=== PATIENT | female | born 1985 | race Caucasian/White ===

== ENCOUNTER → 2018-12-17 | Outpatient (CLI) | payer OTHER ==
[~2018-12-17] MED LIST: DOXYCYCLINE100 M3 PO; IBU800 MG PO
== END | disposition home or self-care (01) ==
LOC: US 12-03 10:30
DX: N63.20 Unspecified lump in the left breast, unspecified quadrant (principal)

== ENCOUNTER 2018-12-24 20:24 | Emergency (ER) | payer OTHER ==
[~2018-12-24] VITALS: Ht 157.4 cm; Wt 86.2 kg
[2018-12-24] MEDS ORDERED: IBU800 MG PO (20:46)
[2018-12-24] MEDS ORDERED: DOXYCYCLINE100 M3 PO (20:46)
== END 2018-12-24 20:47 | disposition home or self-care (01) ==
LOC: ED 20:24
DX: N61.1 Abscess of the breast and nipple (principal); F17.200 Nicotine dependence, unspecified, uncomplicated

== ENCOUNTER 2020-11-12 16:28 | Emergency (ER) | payer OTHER ==
[~2020-11-12] VITALS: Wt 81.6 kg
[2020-11-12] MEDS ORDERED: CORTISPORIN SUS10 ML OT (17:29)
[2020-11-12] MEDS ORDERED: IBUPROFEN600 MG PO (17:29)
[2020-11-12] MEDS ORDERED: AMOXICILLIN500 M2 PO (17:29)
== END 2020-11-12 17:42 | disposition home or self-care (01) ==
LOC: ED 16:28
DX: H66.91 Otitis media, unspecified, right ear (principal); H60.91 Unspecified otitis externa, right ear; R42 Dizziness and giddiness; F17.200 Nicotine dependence, unspecified, uncomplicated; Z79.2 Long term (current) use of antibiotics; Z79.899 Other long term (current) drug therapy

== ENCOUNTER 2021-11-03 21:52 | Emergency (ER) | payer OTHER ==
[~2021-11-03] VITALS: Ht 162.5 cm; Wt 86.2 kg
[~2021-11-03 21:52] MED LIST changes: +AMOXICILLIN500 M2 PO; +CORTISPORIN SUS10 ML OT; +IBUPROFEN600 MG PO
[2021-11-03] MEDS ORDERED: CEPHALEXIN500 M1 PO (23:49)
[2021-11-03] MEDS ORDERED: CYCLOBENZAPRINE10 MG PO (23:49)
== END 2021-11-04 00:24 | disposition home or self-care (01) ==
LOC: ED 21:52
DX: S01.81XA Laceration without foreign body of other part of head, initial encounter (principal); F17.200 Nicotine dependence, unspecified, uncomplicated; M54.2 Cervicalgia; V29.59XA Motorcycle passenger injured in collision with other motor vehicles in traffic accident, initial encounter; Y93.89 Activity, other specified; Y92.89 Other specified places as the place of occurrence of the external cause; Y99.8 Other external cause status

== ENCOUNTER 2022-01-21 12:50 | Emergency (ER) | payer OTHER ==
[~2022-01-21 12:50] MED LIST changes: +CEPHALEXIN500 M1 PO; +CYCLOBENZAPRINE10 MG PO
[2022-01-21] MEDS ORDERED: DIFLUCAN150 MG PO ×3 (13:12→13:31)
[2022-01-21] MEDS ORDERED: ZYRTEC10 M2 PO ×3 (13:12→13:31)
[2022-01-21] MEDS ORDERED: CEFDINIR300 MG PO ×3 (13:12→13:31)
== END 2022-01-21 13:13 | disposition home or self-care (01) ==
LOC: ED 12:50
DX: H66.92 Otitis media, unspecified, left ear (principal)

== ENCOUNTER 2022-07-10 20:14 | Emergency (ER) | payer OTHER ==
[~2022-07-10] VITALS: Ht 157.4 cm; Wt 86.2 kg
[~2022-07-10 20:14] MED LIST changes: +CEFDINIR300 MG PO; +DIFLUCAN150 MG PO; +ZYRTEC10 M2 PO
[2022-07-11] MEDS ORDERED: PREDNISONE20 M1 PO (00:37)
[2022-07-11] MEDS ORDERED: ZITHROMAX250 MG PO (00:37)
[2022-07-11] MEDS ORDERED: DIFLUCAN150 MG PO (00:37)
[2022-07-11] MEDS ORDERED: PROAIR HFA8.5 GM INH (00:37)
== END 2022-07-11 00:49 | disposition home or self-care (01) ==
LOC: ED 20:14
DX: J20.9 Acute bronchitis, unspecified (principal); Z20.822 Contact with and (suspected) exposure to COVID-19; Z79.2 Long term (current) use of antibiotics; Z79.899 Other long term (current) drug therapy